=== PATIENT | female | born 1965 | race Caucasian/White ===

== ENCOUNTER 2022-06-30 13:48 | Outpatient (CLI) | payer BC, SELFPAY ==
--- NOTE | 2022-06-30 14:00 | CRLHL7_ITS ---
For Patients: As a result of the Cures Act, medical imaging exams and procedure reports are released immediately into your electronic medical record. You may view this report before your referring provider. If you have questions, please contact your health care provider. BILATERAL SCREENING MAMMOGRAM WITH COMPUTER-AIDED DETECTION AND TOMOSYNTHESIS TECHNIQUE: CC and MLO views were obtained. These mammographic images have been obtained using full-field digital technique. These mammographic images were interpreted with the benefit of computer-aided detection. Breast Tomosynthesis was used in this interpretation. COMPARISON FILM: 06/17/21, 06/08/20, 06/25/18. FINDINGS: There are scattered areas of fibroglandular density IMPRESSION: There is no radiographic evidence for malignancy. ASSESSMENT: BI-RADS Category 1: Negative RECOMMENDATION: Routine screening mammogram in 1 year. A lay language report of this examination will be provided to the patient. Julian Blackburn M.D. Diagnostic Radiologist [email or web address] [email or web address]/[email or web address] / be/Dictated by: Julian Blackburn MD @ 07/03/2022 8:30:00 AM (Electronically Signed)
== END 2022-06-30 13:49 | disposition home or self-care (01) ==
LOC: MAMMO 13:49
PROVIDERS: PCP Emergency Medicine; Visit Provider Emergency Medicine
DX: Z12.31 Encounter for screening mammogram for malignant neoplasm of breast (principal)
CPT/HCPCS: 77063; 77067

== ENCOUNTER 2023-05-10 08:20 | Outpatient (CLI) | payer BC, SELFPAY | END 2023-05-10 08:21 | disposition home or self-care (01) | LOC: NFLDREF 05-14 12:03 | PROVIDERS: PCP Emergency Medicine; Referring Provider Emergency Medicine; Visit Provider Emergency Medicine | DX: Z00.00 Encounter for general adult medical examination without abnormal findings (principal); E89.0 Postprocedural hypothyroidism; E78.5 Hyperlipidemia, unspecified; B35.1 Tinea unguium; D34 Benign neoplasm of thyroid gland | CPT/HCPCS: 80053; 80061; 84443 ==

== ENCOUNTER 2023-10-01 15:15 | Outpatient (CLI) | payer BC, SELFPAY ==
--- NOTE | 2023-10-01 15:20 | CRLHL7_ITS ---
For Patients: As a result of the Century Cures Act, medical imaging exams and procedure reports are released immediately into your electronic medical record. You may view this report before your referring provider. If you have questions, please contact your health care provider. BILATERAL SCREENING MAMMOGRAM WITH COMPUTER-AIDED DETECTION AND TOMOSYNTHESIS TECHNIQUE: CC and MLO views were obtained. These mammographic images have been obtained using full-field digital technique. These mammographic images were interpreted with the benefit of computer-aided detection. Breast Tomosynthesis was used in this interpretation. COMPARISON FILM: 06/30/22, 06/17/21, 06/08/20. FINDINGS: There are scattered areas of fibroglandular density IMPRESSION: There is no radiographic evidence for malignancy. ASSESSMENT: BI-RADS Category 1: Negative RECOMMENDATION: Routine screening mammogram in 1 year. A lay language report of this examination will be provided to the patient. Julian Blackburn M.D. Diagnostic Radiologist [email or web address] CONG/Dictated by: Julian Blackburn MD @ 10/02/2023 8:43:00 AM (Electronically Signed)
== END 2023-10-01 15:16 | disposition home or self-care (01) ==
LOC: MAMMO 15:16
PROVIDERS: PCP Emergency Medicine; Visit Provider Emergency Medicine
DX: Z12.31 Encounter for screening mammogram for malignant neoplasm of breast (principal)
CPT/HCPCS: 77063; 77067

== ENCOUNTER 2024-04-30 19:39 | Outpatient (CLI) | payer OTHER, SELFPAY ==
--- NOTE | 2024-05-14 08:30 | W.PM.SLEEP ---
Sleep Study Details Details Interpreting Provider: Renata Date of Sleep Study: 04/30/24 Sleep Study Details: STUDY TYPE:? Home on a 10 ? BMI:? 27.5 ORDERING PROVIDER:? Hector Ospina INDICATION:? Concerned about sleep ? SLEEP SUMMARY:? 255 minutes monitored RESPIRATORY SUMMARY:? AHI 18.6, left lateral 4.6, supine 47.9, right lateral 7.7 Low oxygen 89 0.1% of study oxygen less than 90% Snoring 24.7% PERIODIC LIMB MOVEMENTS OF SLEEP:? Not recorded CARDIAC:? Range 56-84 beats per minute, mean 65.4 beats per minute IMPRESSION:? Moderate obstructive sleep apnea with significant supine position dependency RECOMMENDATION: Treatment options include CPAP, dental appliance and/or airway expansion surgery.
== END 2024-04-30 19:40 | disposition home or self-care (01) ==
LOC: SLEEP 19:40
PROVIDERS: PCP Emergency Medicine; Visit Provider Otolaryngology
DX: G47.33 Obstructive sleep apnea (adult) (pediatric) (principal)
CPT/HCPCS: 95806

== ENCOUNTER 2024-07-23 08:47 | Outpatient (CLI) | payer OTHER, SELFPAY | END 2024-07-23 08:48 | disposition home or self-care (01) | PROVIDERS: PCP Emergency Medicine; Visit Provider Emergency Medicine | DX: E78.2 Mixed hyperlipidemia (principal); I10 Essential (primary) hypertension; E89.0 Postprocedural hypothyroidism | CPT/HCPCS: 80048; 80061; 84443 ==

== ENCOUNTER 2024-08-12 07:06 | Outpatient (CLI) | payer OTHER, SELFPAY ==
--- NOTE | 2024-08-12 07:15 | CRLHL7_ITS ---
For Patients: As a result of the Century Cures Act, medical imaging exams and procedure reports are released immediately into your electronic medical record. You may view this report before your referring provider. If you have questions, please contact your health care provider. Indication: Family history of ischemic heart disease Technique: [id number] and Gadolinium bolus MR angiogram of the neck with 3D MIP reconstructions provided. All measurements are based on NASCET criteria. Postcontrast images obtained after administration of 20 mL of Dotarem IV contrast. Comparison: None Findings: Both carotid systems are unremarkable in the neck. No evidence for hemodynamically significant internal carotid artery stenosis by NASCET criteria. The cervical segments of both vertebral arteries are patent. The vertebral arteries appear codominant. The visualized portions of the aortic arch, great vessel origins and proximal subclavian arteries are unremarkable. Impression: Unremarkable MRA of the neck. Dictated by Chloé Jolley MD @ 08/12/2024 1:35:29 PM (Electronically Signed)
== END 2024-08-12 07:07 | disposition home or self-care (01) ==
LOC: MRI 07:07
PROVIDERS: PCP Emergency Medicine; Visit Provider Emergency Medicine
DX: H53.9 Unspecified visual disturbance (principal); R51.9 Headache, unspecified; Z82.49 Family history of ischemic heart disease and other diseases of the circulatory system
CPT/HCPCS: 70549; A9575

== ENCOUNTER 2024-10-02 13:06 | Outpatient (CLI) | payer OTHER, SELFPAY ==
--- NOTE | 2024-10-02 13:20 | CRLHL7_ITS ---
For Patients: As a result of the Century Cures Act, medical imaging exams and procedure reports are released immediately into your electronic medical record. You may view this report before your referring provider. If you have questions, please contact your health care provider. INDICATION: BILATERAL SCREENING MAMMOGRAM, ASYMPTOMATIC 58 Y/O FEMALE COMPARISON: 10/01/2023, 06/30/2022, 06/17/2021 TECHNIQUE: Digital mammogram in CC and MLO projections including computer-aided detection (CAD) and tomosynthesis. BREAST COMPOSITION: The breasts are heterogeneously dense, which may obscure small masses. FINDINGS: No suspicious findings. ASSESSMENT: BI-RADS 1 Negative RECOMMENDATION: Annual screening mammogram. A lay language report of this examination will be provided to the patient. Dictated by: Julian Blackburn MD @ 10/03/2024 09:38:30 (Electronically Signed)
== END 2024-10-02 13:07 | disposition home or self-care (01) ==
LOC: MAMMO 13:06
PROVIDERS: PCP Emergency Medicine; Visit Provider Emergency Medicine
DX: Z12.31 Encounter for screening mammogram for malignant neoplasm of breast (principal); R92.333 Mammographic heterogeneous density, bilateral breasts
CPT/HCPCS: 77063; 77067